=== PATIENT | female | born 1980 | race Caucasian/White ===

== ENCOUNTER → 2016-11-16 | Outpatient (CLI) | payer OTHER ==
[~2016-11-16] MED LIST: VIBRAMYCIN HYC100 MG PO
== END ==
LOC: LAB 18:00
DX: N76.0 Acute vaginitis (principal)
CPT/HCPCS: Q0111

== ENCOUNTER → 2016-11-18 | Outpatient (CLI) | payer OTHER | LOC: RAD 10:45 | DX: S32.89XD Fracture of other parts of pelvis, subsequent encounter for fracture with routine healing (principal); S32.591D Other specified fracture of right pubis, subsequent encounter for fracture with routine healing; S32.511D Fracture of superior rim of right pubis, subsequent encounter for fracture with routine healing ==

== ENCOUNTER → 2016-11-25 | Outpatient (CLI) | payer OTHER | LOC: LAB 17:50 | DX: N76.1 Subacute and chronic vaginitis (principal) ==

== ENCOUNTER → 2018-01-01 | Outpatient (CLI) | payer OTHER ==
[2015-05-16 01:04] VITALS: BP 134/81
[2018-01-01 15:37] LABS: EOS % 0.4 % (1.0-5.0); HEMATOCRIT 39.8 % (37.0-47.0); HEMOGLOBIN 13.4 g/dL (12.5-16.0); LYMPH# 2.1 (1.50-4.00); MEAN CELL VOLUME 89 fl (78-100); MEAN CORPUSCULAR HEMOGLOBIN 30 pg (27-31); MEAN CORPUSCULAR HGB CONC 34 g/dL (33-37); MEAN PLATELET VOLUME 8.9 fl (7.4-10.4); MONO # 0.6 (0.20-0.80); NEU # 4.1 (1.40-6.50); PLATELET COUNT 339 K/mm3 (130-400); RED BLOOD COUNT 4.45 M/mm3 (4.10-5.30); RED CELL DISTRIBUTION WIDTH 12.5 % (11.5-14.5); WHITE BLOOD COUNT 6.9 K/mm3 (4.8-10.8)
[2018-01-01 15:53] LABS: ALBUMIN 4.4 g/dL (3.5-5.0); BUN/CREATININE RATIO 10.3 (6.0-26.0); CALCIUM 9.4 mg/dL (8.4-10.2); POTASSIUM 4.1 mmol/L (3.6-5.0); TOTAL BILIRUBIN 0.3 mg/dL (0.2-1.3); TOTAL PROTEIN 8.1 g/dL (6.3-8.2)
[2018-01-01 22:59] LABS: IGM,SERUM 142 mg/dL (33-293); IMMUNOGLOBULIN A 124 mg/dL (65-421); IMMUNOGLOBULIN G 1134 mg/dL (552-1631)
== END ==
LOC: LAB 14:51
PROVIDERS: Obstetrics & Gynecology
DX: R53.83 Other fatigue (principal)